=== PATIENT | male | born 1945 | race Caucasian/White ===

== ENCOUNTER 2017-10-15 02:20 | Emergency (ER) | payer OTHER ==
[~2017-10-15] VITALS: Ht 177.8 cm; Wt 81.1 kg
[~2017-10-15 02:20] MED LIST: CLOP75TA52 PO; LISI-167 PO; METF10002 PO; SIMV40TA3 PO
[2017-10-15 02:23] VITALS: BP 156/90
[2017-10-15] MEDS ORDERED: AZITHROMYCIN 500 MG TABLET ONE (03:24)
[2017-10-15] MEDS ORDERED: CEFTRIAXONE 250 MG ONE (03:25)
[2017-10-15] MEDS ORDERED: AZITHROMYCIN 500 MG TABLET PO ONE (03:30)
[2017-10-15] MEDS ORDERED: CEFTRIAXONE 250 MG IM ONE (03:30)
== END 2017-10-15 04:06 | disposition home or self-care (01) ==
LOC: ED 03:27
DX: A56.01 Chlamydial cystitis and urethritis (principal); E11.9 Type 2 diabetes mellitus without complications; F17.200 Nicotine dependence, unspecified, uncomplicated; Z20.2 Contact with and (suspected) exposure to infections with a predominantly sexual mode of transmission
CPT/HCPCS: 87491; 87591; 96372; 99284; J0696

== ENCOUNTER 2018-06-08 16:11 | Emergency (ER) | payer OTHER ==
[~2018-06-08] VITALS: Ht 177.8 cm; Wt 75.6 kg
[2018-06-08] MEDS ORDERED: DIPH,PERTUSS(ACELL),TET VAC/PF 0.5 ML IM-VACC ONE ×2 (16:30→18:56)
[2018-06-08 17:03] LABS: BASOPHILS # (AUTO) 0.04 x10^3/uL (0-0.1); BASOPHILS % (AUTO) 0 % (0-1); EOSINOPHILS # (AUTO) 0.07 x10^3/uL (0-0.4); EOSINOPHILS % (AUTO) 1 % (1-7); LYMPHOCYTES # (AUTO) 1.38 x10^3/uL (1-3.4); LYMPHOCYTES % (AUTO) 13 % (22-44); MD NO; MEAN CORPUSCULAR HEMOGLOBIN 28.7 pg (27.5-34.5); MEAN CORPUSCULAR HGB CONC 33.1 g/dL (33.2-36.2); MEAN CORPUSCULAR VOLUME 86.8 fL (81-97); MEAN PLATELET VOLUME 7.9 fL (7.4-10.4); MONOCYTES # (AUTO) 0.56 x10^3/uL (0.2-0.8); MONOCYTES % (AUTO) 5 % (2-9); NEUTROPHILS # (AUTO) 8.31 x10^3/uL (1.8-6.8); NEUTROPHILS % (AUTO) 80 % (42-75); PLATELET COUNT 351 x10^3/uL (130-400); RED BLOOD COUNT 5.19 x10^6/uL (4.38-5.82); RED CELL DISTRIBUTION WIDTH 13.7 % (9.4-14.8)
[2018-06-08 17:07] LABS: CHLORIDE 108 mmol/L (98-107)
[2018-06-08 17:15] LABS: ALANINE AMINOTRANSFERASE 30 U/L (12-78); ALBUMIN 3.5 g/dL (3.4-5.0); ALKALINE PHOSPHATASE 126 U/L (45-117); ANION GAP 7 mmol/L (5-15); BILIRUBIN,TOTAL 0.3 mg/dL (0.2-1.0); CALCIUM 8.7 mg/dL (8.5-10.1); TOTAL PROTEIN 7.3 g/dL (6.4-8.2)
--- NOTE | 2018-06-08 17:40 | NUR ---
NAX1
--- NOTE | 2018-06-08 17:46 | NUR ---
FROM LOBBY TO ROOM AT THIS TIME
--- NOTE | 2018-06-08 17:51 | NUR ---
Pt changing into gown, EDT to treat wound with bacitracin.
[2018-06-08] MEDS ORDERED: BACITRACIN ZINC OINT 500U/GM, 0.9 GM ONE (17:53)
--- NOTE | 2018-06-08 17:55 | NUR ---
EDT at bedside to treat wound, pt aware of need for urine sample.
--- NOTE | 2018-06-08 18:02 | NUR ---
Dr. Linder at bedside to evaluate pt.
--- NOTE | 2018-06-08 18:09 | NUR ---
EMELID called for pt regarding making a police report.
--- NOTE | 2018-06-08 18:11 | NUR ---
Pt ambulated to bathroom, no assistance required. Urine sample requested.
--- NOTE | 2018-06-08 18:16 | NUR ---
Pt unable to provide urine sample at this time.
--- NOTE | 2018-06-08 18:25 | NUR ---
KANA at bedside to interview pt.
--- NOTE | 2018-06-08 19:00 | NUR ---
Pt medicated per MAR.
[2018-06-08 19:19] VITALS: BP 157/78
--- NOTE | 2018-06-08 19:20 | NUR ---
Pt ambulated out of room prior to receiving d/c paperwork.
--- NOTE | 2018-06-08 19:24 | NUR ---
made aware that pt has left.
== END 2018-06-08 19:27 | disposition left against medical advice (07) ==
LOC: ED 19:21
DX: S50.312A Abrasion of left elbow, initial encounter (principal); E11.9 Type 2 diabetes mellitus without complications; Y08.89XA Assault by other specified means, initial encounter; Y93.89 Activity, other specified; Y92.89 Other specified places as the place of occurrence of the external cause; Y99.8 Other external cause status
CPT/HCPCS: 36415; 80053; 82800; 82962; 85025; 90471; 90715

== ENCOUNTER 2019-01-13 01:21 | Emergency (ER) | payer OTHER ==
[~2019-01-13] VITALS: Ht 180.3 cm; Wt 78.0 kg
[~2019-01-13 01:21] MED LIST changes: +ACET325T14 PO; +ASPI81TA45 PO; +DOCU-131 PO; +HYDR-3237 PO; +INSU100I11 SQ-INSULIN; +LIDO700A20 TD; +ONDA4TAB13 PO; +SENN-177 PO
[2019-01-13] MEDS ORDERED: FLUORESCEIN OPHTHALMIC 1 MG STRIP ONE (01:24)
[2019-01-13] MEDS ORDERED: PROPARACAINE OPHTH 0.5%, 15ML ONE (01:25)
[2019-01-13] MEDS ORDERED: CIPROFLOXACIN 500 MG TABLET PO ONE (02:30)
[2019-01-13] MEDS ORDERED: CIPROFLOXACIN 500 MG TABLET ONE (02:34)
[2019-01-13 02:36] VITALS: BP 135/62
== END 2019-01-13 02:43 | disposition home or self-care (01) ==
LOC: ED 02:10
DX: H10.021 Other mucopurulent conjunctivitis, right eye (principal); F17.200 Nicotine dependence, unspecified, uncomplicated; E11.9 Type 2 diabetes mellitus without complications; I10 Essential (primary) hypertension; E78.5 Hyperlipidemia, unspecified; Z96.649 Presence of unspecified artificial hip joint
CPT/HCPCS: 99283

== ENCOUNTER 2019-01-14 14:19 | Inpatient (IN) ==
[~2019-01-14] VITALS: Ht 177.8 cm; Wt 77.7 kg
--- NOTE | 2019-01-14 14:49 | NUR ---
PT TO ROOM 23 W/ C/O R EYE CRUSTED OVER AFTER PT WAS DX W/ CONJUNCTIVITIS. [place]. PT STATES HE AWOKE THIS AM AND WAS UNABLE TO OPEN EYE. STATES IT HAS BEEN DRAINING X 3 DAYS. PT RESTING ON [employer]. RUPESH. [employer].
--- NOTE | 2019-01-14 16:03 | NUR ---
THIS RN ATTEMPTED PIV X 2 W/O SUCCESS. ANGUS BUCKLEY AT BEDSIDE ATTEMPTING US PIV.
[2019-01-14 16:08] LABS: ANION GAP 6 mmol/L (5-15); CHLORIDE 103 mmol/L (98-107)
--- NOTE | 2019-01-14 16:44 | NUR ---
PT RESTING ON GURNEY. NADN. PALOMO.
[2019-01-14] MEDS ORDERED: OMNIPAQUE 350 MG/ML, 75ML BOTTLE ONE (17:03)
--- NOTE | 2019-01-14 17:23 | NUR ---
OPTHO AT BEDSIDE.
[2019-01-14] MEDS ORDERED: AMPICILLIN/SULBACTAM 3 GM in SODIUM CHLORIDE 0.9% 100 ML IV ONE (18:00)
[2019-01-14] MEDS ORDERED: VANCOMYCIN PER PHARMACY MC PRN ×2 (18:00→19:00)
[2019-01-14 18:01] LABS: BASOPHILS # (AUTO) 0.04 x10^3/uL (0-0.1); BASOPHILS % (AUTO) 1 % (0-1); EOSINOPHILS # (AUTO) 0.15 x10^3/uL (0-0.4); EOSINOPHILS % (AUTO) 2 % (1-7); LYMPHOCYTES # (AUTO) 1.88 x10^3/uL (1-3.4); LYMPHOCYTES % (AUTO) 21 % (22-44); MD NO; MEAN CORPUSCULAR HEMOGLOBIN 29.7 pg (27.5-34.5); MEAN CORPUSCULAR HGB CONC 33.2 g/dL (33.2-36.2); MEAN CORPUSCULAR VOLUME 89.5 fL (81-97); MEAN PLATELET VOLUME 8.1 fL (7.4-10.4); MONOCYTES % (AUTO) 8 % (2-9); NEUTROPHILS # (AUTO) 6.05 x10^3/uL (1.8-6.8); NEUTROPHILS % (AUTO) 69 % (42-75); PLATELET COUNT 244 x10^3/uL (130-400); RED BLOOD COUNT 5.26 x10^6/uL (4.38-5.82); RED CELL DISTRIBUTION WIDTH 14.6 % (9.4-14.8)
--- NOTE | 2019-01-14 18:19 | NUR ---
PT RESTING ON GURNEY. NADN. PALOMO.
[2019-01-14] MEDS ORDERED: VANCOMYCIN 1,500 MG in SODIUM CHLORIDE 0.9% 250 ML IV ONE (18:30)
--- NOTE | 2019-01-14 18:55 | NUR ---
REPORT GIVEN TO ANGUS ARTIS.
--- NOTE | 2019-01-14 18:56 | NUR ---
PT REPORT FROM ANGUS BANKS. PT CARE TO BE ASSUMED.
[2019-01-14] MEDS ORDERED: ACETAMINOPHEN 325 MG TABLET PO PRN (19:00)
[2019-01-14] MEDS ORDERED: ONDANSETRON 2MG/ML, 2ML IVPush PRN (19:00)
[2019-01-14] MEDS ORDERED: morphine SULFATE 10 MG/ML, 1ML IVPush PRN (19:00)
[2019-01-14] MEDS ORDERED: HYDROcodone/APAP 5/325 TABLET PO PRN (19:00)
--- NOTE | 2019-01-14 19:13 | NUR ---
REPORT GIVEN TO JHOAN URRUTIA RN. ALL QUESTIONS ANSWERED. AWAITING PT TRANSPORT.
[2019-01-14] MEDS ORDERED: LIDODERM 5% PATCH TD PRN (19:30)
[2019-01-14 19:58] VITALS: BP 167/69
[2019-01-14] MEDS ORDERED: PHARMACOKINETIC CONSULTATION MC ONE (20:00)
[2019-01-14] MEDS ORDERED: PHARMACOKINETIC MONITORING MC PRN (20:00)
[2019-01-14 20:17] VITALS: BP 131/68
[2019-01-14] MEDS ORDERED: NEO/POLYMYX B/DEXA OPHTH OINT, 3.5GM RIGHTEYE SCH (21:00)
[2019-01-14] MEDS: VANCOMYCIN 1,600 MG in SODIUM CHLORIDE 0.9% 250 ML IV SCH (22:42)
[2019-01-14] MEDS: SIMVASTATIN 40 MG TABLET PO SCH (22:43)
[2019-01-14] MEDS: INSULIN LISPRO 100 UNITS/ML, PEN SQ-INSULIN SCH (22:43)
[2019-01-14] MEDS ORDERED: NICOTINE 21 MG/24 HR PATCH.TD24 TD ONE (23:00)
[2019-01-15] MEDS: NEO/POLYMYX B/DEXA OPHTH OINT, 3.5GM RIGHTEYE SCH ×5 (00:05→21:14)
[2019-01-15 01:49] VITALS: BP 113/54
[2019-01-15] MEDS: AMPICILLIN/SULBACTAM 3 GM in SODIUM CHLORIDE 0.9% 100 ML IV SCH ×3 (04:14→18:05)
[2019-01-15 05:36] LABS: BASOPHILS # (AUTO) 0.04 x10^3/uL (0-0.1); BASOPHILS % (AUTO) 1 % (0-1); EOSINOPHILS # (AUTO) 0.14 x10^3/uL (0-0.4); EOSINOPHILS % (AUTO) 2 % (1-7); LYMPHOCYTES # (AUTO) 1.86 x10^3/uL (1-3.4); LYMPHOCYTES % (AUTO) 20 % (22-44); MD NO; MEAN CORPUSCULAR HEMOGLOBIN 29.7 pg (27.5-34.5); MEAN CORPUSCULAR VOLUME 89.8 fL (81-97); MEAN PLATELET VOLUME 8.5 fL (7.4-10.4); MONOCYTES % (AUTO) 8 % (2-9); NEUTROPHILS # (AUTO) 6.44 x10^3/uL (1.8-6.8); NEUTROPHILS % (AUTO) 70 % (42-75); PLATELET COUNT 247 x10^3/uL (130-400); RED BLOOD COUNT 4.92 x10^6/uL (4.38-5.82); RED CELL DISTRIBUTION WIDTH 14.8 % (9.4-14.8)
[2019-01-15 05:43] LABS: ANION GAP 5 mmol/L (5-15); CALCIUM 8.7 mg/dL (8.5-10.1); CHLORIDE 110 mmol/L (98-107)
[2019-01-15 05:44] LABS: CREATININE 0.79 mg/dL (0.7-1.3)
[2019-01-15 06:31] LABS: HCT (SEDRATE) 44.2 % (39.2-51.8)
[2019-01-15 06:43] VITALS: BP 129/66
[2019-01-15] MEDS: LIDODERM REMOVE PATCH NOTE XX SCH (08:00)
[2019-01-15] MEDS: INSULIN LISPRO 100 UNITS/ML, PEN SQ-INSULIN SCH ×4 (08:04→21:13)
[2019-01-15 08:35] LABS: AMPHETAMINE SCREEN, URINE Positive (Negative); BARBITURATE SCREEN, URINE Negative (Negative); BENZODIAZEPINE SCREEN, URINE Negative (Negative); CANNABINOID SCREEN, URINE Negative (Negative); COCAINE SCREEN, URINE Negative (Negative); METHADONE SCREEN, URINE Negative (Negative); OPIATE SCREEN, URINE Positive (Negative)
[2019-01-15 09:46] VITALS: BP 123/64
[2019-01-15] MEDS: CLOPIDOGREL 75 MG TABLET PO SCH (09:47)
[2019-01-15] MEDS: LISINOPRIL 10 MG TABLET PO SCH (09:47)
[2019-01-15 13:53] VITALS: BP 129/65
[2019-01-15 18:37] VITALS: BP 114/70
[2019-01-15] MEDS: SIMVASTATIN 40 MG TABLET PO SCH (21:14)
[2019-01-15] MEDS: VANCOMYCIN 1,600 MG in SODIUM CHLORIDE 0.9% 250 ML IV SCH (21:14)
[2019-01-16] MEDS: AMPICILLIN/SULBACTAM 3 GM in SODIUM CHLORIDE 0.9% 100 ML IV SCH ×4 (00:46→17:58)
[2019-01-16 02:22] VITALS: BP 123/66
[2019-01-16 05:23] LABS: BASOPHILS # (AUTO) 0.05 x10^3/uL (0-0.1); BASOPHILS % (AUTO) 1 % (0-1); EOSINOPHILS # (AUTO) 0.13 x10^3/uL (0-0.4); EOSINOPHILS % (AUTO) 2 % (1-7); LYMPHOCYTES # (AUTO) 2.13 x10^3/uL (1-3.4); LYMPHOCYTES % (AUTO) 27 % (22-44); MD NO; MEAN CORPUSCULAR HEMOGLOBIN 29.2 pg (27.5-34.5); MEAN CORPUSCULAR HGB CONC 32.7 g/dL (33.2-36.2); MEAN CORPUSCULAR VOLUME 89.3 fL (81-97); MEAN PLATELET VOLUME 8.2 fL (7.4-10.4); MONOCYTES # (AUTO) 0.67 x10^3/uL (0.2-0.8); MONOCYTES % (AUTO) 8 % (2-9); NEUTROPHILS % (AUTO) 63 % (42-75); PLATELET COUNT 251 x10^3/uL (130-400); RED BLOOD COUNT 5.02 x10^6/uL (4.38-5.82); RED CELL DISTRIBUTION WIDTH 14.7 % (9.4-14.8)
[2019-01-16 05:29] LABS: ANION GAP 5 mmol/L (5-15); CALCIUM 8.6 mg/dL (8.5-10.1); CHLORIDE 110 mmol/L (98-107)
[2019-01-16 05:31] LABS: CREATININE 0.71 mg/dL (0.7-1.3)
[2019-01-16] MEDS: NEO/POLYMYX B/DEXA OPHTH OINT, 3.5GM RIGHTEYE SCH ×4 (05:45→20:18)
[2019-01-16 06:57] VITALS: BP 111/58
[2019-01-16] MEDS: INSULIN LISPRO 100 UNITS/ML, PEN SQ-INSULIN SCH ×4 (07:00→21:00)
[2019-01-16] MEDS: LIDODERM REMOVE PATCH NOTE XX SCH (08:00)
[2019-01-16] MEDS: LISINOPRIL 10 MG TABLET PO SCH (08:06)
[2019-01-16] MEDS: CLOPIDOGREL 75 MG TABLET PO SCH (08:06)
[2019-01-16] MEDS ORDERED: OMNIPAQUE 350 MG/ML, 75ML BOTTLE ONE (13:00)
[2019-01-16 13:34] VITALS: BP 117/72
[2019-01-16 18:46] VITALS: BP 119/65
[2019-01-16] MEDS ORDERED: AZITHROMYCIN 500 MG TABLET PO ONE (19:00)
[2019-01-16] MEDS: CEFTRIAXONE PMX 2GM/50ML 50 ML IV SCH (20:18)
[2019-01-16] MEDS: SIMVASTATIN 40 MG TABLET PO SCH (20:19)
[2019-01-16] MEDS: MOXIFLOXACIN OPHTH O.5%, 3ML RIGHTEYE SCH (21:00)
[2019-01-16] MEDS ORDERED: MOXIFLOXACIN OPHTH O.5%, 3ML RIGHTEYE SCH (21:00)
[2019-01-17 01:29] VITALS: BP 119/66
[2019-01-17] MEDS: MOXIFLOXACIN OPHTH O.5%, 3ML RIGHTEYE SCH ×4 (06:00→20:45)
[2019-01-17] MEDS: NEO/POLYMYX B/DEXA OPHTH OINT, 3.5GM RIGHTEYE SCH ×4 (06:26→20:53)
[2019-01-17 06:28] VITALS: BP 125/72
[2019-01-17] MEDS: INSULIN LISPRO 100 UNITS/ML, PEN SQ-INSULIN SCH ×4 (07:00→20:56)
[2019-01-17] MEDS: LIDODERM REMOVE PATCH NOTE XX SCH (08:00)
[2019-01-17] MEDS: LISINOPRIL 10 MG TABLET PO SCH (10:24)
[2019-01-17] MEDS: CLOPIDOGREL 75 MG TABLET PO SCH (10:24)
[2019-01-17 13:34] VITALS: BP 129/75
[2019-01-17 19:55] VITALS: BP 123/73
[2019-01-17] MEDS: CEFTRIAXONE PMX 2GM/50ML 50 ML IV SCH (20:44)
[2019-01-17] MEDS: SIMVASTATIN 40 MG TABLET PO SCH (20:53)
[2019-01-17 23:24] VITALS: BP 119/66
[2019-01-18] MEDS: MOXIFLOXACIN OPHTH O.5%, 3ML RIGHTEYE SCH ×4 (06:12→21:20)
[2019-01-18] MEDS: NEO/POLYMYX B/DEXA OPHTH OINT, 3.5GM RIGHTEYE SCH ×4 (06:20→21:20)
[2019-01-18] MEDS: INSULIN LISPRO 100 UNITS/ML, PEN SQ-INSULIN SCH ×4 (07:00→21:21)
[2019-01-18 07:07] VITALS: BP 115/66
[2019-01-18] MEDS: LIDODERM REMOVE PATCH NOTE XX SCH (08:00)
[2019-01-18] MEDS: LISINOPRIL 10 MG TABLET PO SCH (09:09)
[2019-01-18] MEDS: CLOPIDOGREL 75 MG TABLET PO SCH (09:09)
[2019-01-18 14:13] VITALS: BP 122/70
[2019-01-18 16:04] VITALS: BP 133/94
[2019-01-18 19:43] VITALS: BP 114/75
[2019-01-18] MEDS: CEFTRIAXONE PMX 2GM/50ML 50 ML IV SCH (21:20)
[2019-01-18] MEDS: SIMVASTATIN 40 MG TABLET PO SCH (21:20)
[2019-01-19 03:22] VITALS: BP 98/58
[2019-01-19] MEDS: MOXIFLOXACIN OPHTH O.5%, 3ML RIGHTEYE SCH ×4 (06:11→20:51)
[2019-01-19] MEDS: NEO/POLYMYX B/DEXA OPHTH OINT, 3.5GM RIGHTEYE SCH ×4 (06:11→20:51)
[2019-01-19 07:10] VITALS: BP 137/71
[2019-01-19] MEDS: LISINOPRIL 10 MG TABLET PO SCH (07:48)
[2019-01-19] MEDS: INSULIN LISPRO 100 UNITS/ML, PEN SQ-INSULIN SCH ×4 (07:48→20:50)
[2019-01-19] MEDS: CLOPIDOGREL 75 MG TABLET PO SCH (07:48)
[2019-01-19] MEDS: LIDODERM REMOVE PATCH NOTE XX SCH (07:48)
[2019-01-19 14:27] VITALS: BP 96/55
[2019-01-19 20:16] VITALS: BP 110/62
[2019-01-19] MEDS: CEFTRIAXONE PMX 2GM/50ML 50 ML IV SCH (20:49)
[2019-01-19] MEDS: SIMVASTATIN 40 MG TABLET PO SCH (20:49)
[2019-01-20 02:00] VITALS: BP 119/69
[2019-01-20] MEDS: MOXIFLOXACIN OPHTH O.5%, 3ML RIGHTEYE SCH ×4 (05:42→21:09)
[2019-01-20] MEDS: NEO/POLYMYX B/DEXA OPHTH OINT, 3.5GM RIGHTEYE SCH ×4 (05:42→21:09)
[2019-01-20] MEDS: INSULIN LISPRO 100 UNITS/ML, PEN SQ-INSULIN SCH ×4 (07:00→21:10)
[2019-01-20] MEDS: LIDODERM REMOVE PATCH NOTE XX SCH (08:00)
[2019-01-20] MEDS: LISINOPRIL 10 MG TABLET PO SCH (08:50)
[2019-01-20] MEDS: CLOPIDOGREL 75 MG TABLET PO SCH (08:50)
[2019-01-20 08:51] VITALS: BP 105/64
[2019-01-20 17:04] VITALS: BP 113/64
[2019-01-20 19:23] VITALS: BP 121/66
[2019-01-20] MEDS: CEFTRIAXONE PMX 2GM/50ML 50 ML IV SCH (21:09)
[2019-01-20] MEDS: SIMVASTATIN 40 MG TABLET PO SCH (21:09)
[2019-01-21 01:00] VITALS: BP 139/87
[2019-01-21] MEDS: NEO/POLYMYX B/DEXA OPHTH OINT, 3.5GM RIGHTEYE SCH ×4 (06:38→21:45)
[2019-01-21] MEDS: MOXIFLOXACIN OPHTH O.5%, 3ML RIGHTEYE SCH ×4 (06:38→21:45)
[2019-01-21 06:39] VITALS: BP 109/62
[2019-01-21] MEDS: LIDODERM REMOVE PATCH NOTE XX SCH (08:00)
[2019-01-21] MEDS: CLOPIDOGREL 75 MG TABLET PO SCH (08:32)
[2019-01-21] MEDS: LISINOPRIL 10 MG TABLET PO SCH (08:32)
[2019-01-21] MEDS: INSULIN LISPRO 100 UNITS/ML, PEN SQ-INSULIN SCH ×4 (08:33→21:44)
[2019-01-21 14:41] VITALS: BP 115/65
[2019-01-21 21:11] VITALS: BP 100/56
[2019-01-21] MEDS: SIMVASTATIN 40 MG TABLET PO SCH (21:43)
[2019-01-21] MEDS: CEFTRIAXONE PMX 2GM/50ML 50 ML IV SCH (21:43)
[2019-01-22 01:23] VITALS: BP 110/51
[2019-01-22] MEDS: NEO/POLYMYX B/DEXA OPHTH OINT, 3.5GM RIGHTEYE SCH ×4 (06:42→21:14)
[2019-01-22] MEDS: MOXIFLOXACIN OPHTH O.5%, 3ML RIGHTEYE SCH ×4 (06:43→21:14)
[2019-01-22] MEDS: LIDODERM REMOVE PATCH NOTE XX SCH (08:00)
[2019-01-22] MEDS: INSULIN LISPRO 100 UNITS/ML, PEN SQ-INSULIN SCH ×4 (08:31→21:00)
[2019-01-22] MEDS: CLOPIDOGREL 75 MG TABLET PO SCH (08:31)
[2019-01-22] MEDS: LISINOPRIL 10 MG TABLET PO SCH (08:32)
[2019-01-22 08:50] VITALS: BP 113/60
[2019-01-22 13:58] VITALS: BP 114/64
[2019-01-22 19:22] VITALS: BP 105/59
[2019-01-22] MEDS: CEFTRIAXONE PMX 2GM/50ML 50 ML IV SCH (21:13)
[2019-01-22] MEDS: SIMVASTATIN 40 MG TABLET PO SCH (21:14)
[2019-01-23 01:26] VITALS: BP 122/64
[2019-01-23] MEDS: NEO/POLYMYX B/DEXA OPHTH OINT, 3.5GM RIGHTEYE SCH ×4 (05:24→20:41)
[2019-01-23] MEDS: MOXIFLOXACIN OPHTH O.5%, 3ML RIGHTEYE SCH ×4 (05:24→20:41)
[2019-01-23 06:36] VITALS: BP 97/61
[2019-01-23] MEDS: INSULIN LISPRO 100 UNITS/ML, PEN SQ-INSULIN SCH ×4 (07:00→20:42)
[2019-01-23] MEDS: CLOPIDOGREL 75 MG TABLET PO SCH (07:41)
[2019-01-23] MEDS: LISINOPRIL 10 MG TABLET PO SCH (07:42)
[2019-01-23] MEDS: LIDODERM REMOVE PATCH NOTE XX SCH (07:42)
[2019-01-23 11:12] LABS: BASOPHILS # (AUTO) 0.06 x10^3/uL (0-0.1); BASOPHILS % (AUTO) 1 % (0-1); EOSINOPHILS # (AUTO) 0.14 x10^3/uL (0-0.4); EOSINOPHILS % (AUTO) 2 % (1-7); LYMPHOCYTES # (AUTO) 2.54 x10^3/uL (1-3.4); LYMPHOCYTES % (AUTO) 27 % (22-44); MD NO; MEAN CORPUSCULAR HEMOGLOBIN 29.9 pg (27.5-34.5); MEAN CORPUSCULAR HGB CONC 33.4 g/dL (33.2-36.2); MEAN CORPUSCULAR VOLUME 89.5 fL (81-97); MEAN PLATELET VOLUME 8.1 fL (7.4-10.4); MONOCYTES # (AUTO) 0.57 x10^3/uL (0.2-0.8); MONOCYTES % (AUTO) 6 % (2-9); NEUTROPHILS # (AUTO) 6.23 x10^3/uL (1.8-6.8); NEUTROPHILS % (AUTO) 65 % (42-75); PLATELET COUNT 310 x10^3/uL (130-400); RED BLOOD COUNT 5.31 x10^6/uL (4.38-5.82)
[2019-01-23 11:22] LABS: ALANINE AMINOTRANSFERASE 40 U/L (12-78); ALBUMIN 3.3 g/dL (3.4-5.0); ANION GAP 7 mmol/L (5-15); C-REACTIVE PROTEIN, QUANT 0.07 mg/dL (0.02-0.49); CALCIUM 8.9 mg/dL (8.5-10.1); CHLORIDE 106 mmol/L (98-107); CREATININE 0.77 mg/dL (0.7-1.3)
[2019-01-23 11:24] LABS: ALKALINE PHOSPHATASE 120 U/L (45-117); BILIRUBIN,TOTAL 0.3 mg/dL (0.2-1.0)
[2019-01-23 12:19] VITALS: BP 108/67
[2019-01-23 14:10] LABS: HCT (SEDRATE) 47.5 % (39.2-51.8)
[2019-01-23 20:38] VITALS: BP 108/57
[2019-01-23] MEDS: CEFTRIAXONE PMX 2GM/50ML 50 ML IV SCH (20:40)
[2019-01-23] MEDS: SIMVASTATIN 40 MG TABLET PO SCH (20:41)
[2019-01-24 04:25] VITALS: BP 126/70
[2019-01-24 05:22] LABS: ALANINE AMINOTRANSFERASE 46 U/L (12-78); ALBUMIN 3.3 g/dL (3.4-5.0); ANION GAP 6 mmol/L (5-15); CALCIUM 8.7 mg/dL (8.5-10.1); CHLORIDE 109 mmol/L (98-107); CREATININE 0.75 mg/dL (0.7-1.3)
[2019-01-24 05:24] LABS: ALKALINE PHOSPHATASE 108 U/L (45-117); BILIRUBIN,TOTAL 0.3 mg/dL (0.2-1.0)
[2019-01-24 05:32] LABS: BASOPHILS # (AUTO) 0.06 x10^3/uL (0-0.1); BASOPHILS % (AUTO) 1 % (0-1); EOSINOPHILS # (AUTO) 0.15 x10^3/uL (0-0.4); EOSINOPHILS % (AUTO) 2 % (1-7); LYMPHOCYTES # (AUTO) 3.07 x10^3/uL (1-3.4); LYMPHOCYTES % (AUTO) 31 % (22-44); MD NO; MEAN CORPUSCULAR HEMOGLOBIN 29.4 pg (27.5-34.5); MEAN CORPUSCULAR HGB CONC 33.6 g/dL (33.2-36.2); MEAN CORPUSCULAR VOLUME 87.7 fL (81-97); MEAN PLATELET VOLUME 7.9 fL (7.4-10.4); MONOCYTES # (AUTO) 0.59 x10^3/uL (0.2-0.8); MONOCYTES % (AUTO) 6 % (2-9); NEUTROPHILS # (AUTO) 6.15 x10^3/uL (1.8-6.8); NEUTROPHILS % (AUTO) 61 % (42-75); PLATELET COUNT 315 x10^3/uL (130-400); RED BLOOD COUNT 5.35 x10^6/uL (4.38-5.82); RED CELL DISTRIBUTION WIDTH 14.5 % (9.4-14.8)
[2019-01-24] MEDS: NEO/POLYMYX B/DEXA OPHTH OINT, 3.5GM RIGHTEYE SCH ×2 (05:38→11:21)
[2019-01-24] MEDS: MOXIFLOXACIN OPHTH O.5%, 3ML RIGHTEYE SCH ×2 (05:38→11:21)
[2019-01-24] MEDS: INSULIN LISPRO 100 UNITS/ML, PEN SQ-INSULIN SCH ×2 (07:00→11:21)
[2019-01-24] MEDS: LIDODERM REMOVE PATCH NOTE XX SCH (07:04)
[2019-01-24] MEDS: CLOPIDOGREL 75 MG TABLET PO SCH (07:26)
[2019-01-24] MEDS: LISINOPRIL 10 MG TABLET PO SCH (07:26)
[2019-01-24 08:09] VITALS: BP 113/73
[2019-01-24 13:30] VITALS: BP 113/67
== END 2019-01-24 16:20 | disposition left against medical advice (07) | DRG 121 ==
LOC: ED 15:21 → EDIP 18:00 → 3N 19:00 → 4NE 19:58 → 3N 01-17 09:10
PROVIDERS: ADMIT Internal Medicine; ATTEND Internal Medicine
DX: H05.011 Cellulitis of right orbit (principal); L02.01 Cutaneous abscess of face; L03.213 Periorbital cellulitis; A54.31 Gonococcal conjunctivitis; E78.5 Hyperlipidemia, unspecified; F15.10 Other stimulant abuse, uncomplicated; I10 Essential (primary) hypertension; F17.210 Nicotine dependence, cigarettes, uncomplicated; I25.10 Atherosclerotic heart disease of native coronary artery without angina pectoris; K75.9 Inflammatory liver disease, unspecified; Z96.641 Presence of right artificial hip joint; Z79.02 Long term (current) use of antithrombotics/antiplatelets; Z79.82 Long term (current) use of aspirin; Z79.84 Long term (current) use of oral hypoglycemic drugs; Z79.899 Other long term (current) drug therapy; Z80.1 Family history of malignant neoplasm of trachea, bronchus and lung; Z80.3 Family history of malignant neoplasm of breast; Z82.5 Family history of asthma and other chronic lower respiratory diseases; Z95.5 Presence of coronary angioplasty implant and graft; E11.9 Type 2 diabetes mellitus without complications
CPT/HCPCS: 36415; 70481; 80048; 80053; 80074; 80307; 82962; 83735; 84100; 85025; 85651; 86140; 86592; 87040; 87070; 87081; 87186; 87205; 87389; 87491; 87591; 96374; 99283; G0378; J0295; J0696; J3370; Q9967; J1815; J7050

== ENCOUNTER 2019-09-23 12:05 | Inpatient (IN) | payer OTHER ==
[~2019-09-23] VITALS: Ht 177.8 cm; Wt 76.0 kg
[~2019-09-23 12:05] MED LIST changes: +SIMV40TA20 PO; -SIMV40TA3 PO
--- NOTE | 2019-09-23 12:23 | NUR ---
BREAK RN: 74 YR OLD MALE HERE WITH C/O HERNIA PAIN FOR APPROX 4 MONTHS, DIFFICULTY URINATING. HERNIA IN LEFT GROIN DOWN TO TESTICLE. CINDY CHRISTIANSEN AT BEDSIDE TO BHAVIN MADRID.
[2019-09-23] MEDS ORDERED: ONDANSETRON 2MG/ML, 2ML IVPush ONE (12:30)
[2019-09-23] MEDS ORDERED: SODIUM CHLORIDE FLUSH 10ML SYR IVF ONE (12:30)
[2019-09-23] MEDS ORDERED: MORPHINE SULFATE 4 MG/ML, 1ML IVPush PRN (12:30)
[2019-09-23 12:53] LABS: BASOPHILS # (AUTO) 0.03 x10^3/uL (0-0.1); BASOPHILS % (AUTO) 0 % (0-1); EOSINOPHILS # (AUTO) 0.07 x10^3/uL (0-0.4); EOSINOPHILS % (AUTO) 1 % (1-7); LYMPHOCYTES # (AUTO) 1.97 x10^3/uL (1-3.4); LYMPHOCYTES % (AUTO) 28 % (22-44); MD NO; MEAN CORPUSCULAR HGB CONC 32.5 g/dL (33.2-36.2); MEAN CORPUSCULAR VOLUME 89.4 fL (81-97); MEAN PLATELET VOLUME 7.6 fL (7.4-10.4); MONOCYTES # (AUTO) 0.47 x10^3/uL (0.2-0.8); MONOCYTES % (AUTO) 7 % (2-9); NEUTROPHILS # (AUTO) 4.58 x10^3/uL (1.8-6.8); NEUTROPHILS % (AUTO) 65 % (42-75); PLATELET COUNT 286 x10^3/uL (130-400); RED CELL DISTRIBUTION WIDTH 13.6 % (9.4-14.8)
--- NOTE | 2019-09-23 12:54 | NUR ---
REPORT TO KARIE GRECO.
[2019-09-23] MEDS ORDERED: PLEASE ENTER HEIGHT MC SCH (13:00)
[2019-09-23 13:05] LABS: ALBUMIN 3.3 g/dL (3.4-5.0); ANION GAP 7 mmol/L (5-15); CHLORIDE 105 mmol/L (98-107)
[2019-09-23 13:09] LABS: ALANINE AMINOTRANSFERASE 28 U/L (12-78); ALKALINE PHOSPHATASE 157 U/L (45-117); BILIRUBIN,TOTAL 0.4 mg/dL (0.2-1.0); CREATININE 0.89 mg/dL (0.7-1.3)
[2019-09-23 13:29] LABS: INTERNATIONAL NORMALIZED RATIO 0.94 (0.93-1.1)
[2019-09-23] MEDS ORDERED: ONDANSETRON 2MG/ML, 2ML ONE (13:37)
[2019-09-23] MEDS ORDERED: MORPHINE SULFATE 4 MG/ML, 1ML ONE (13:37)
[2019-09-23] MEDS ORDERED: OMNIPAQUE 350 MG/ML, 100ML BOTTLE ONE (14:00)
[2019-09-23] MEDS ORDERED: ONDANSETRON 2MG/ML, 2ML IVPush PRN (15:30)
[2019-09-23] MEDS ORDERED: LABETALOL 5MG/ML, 20ML IVPush PRN (15:30)
[2019-09-23] MEDS ORDERED: ENALAPRILAT 1.25 MG/ML, 2ML IVPush PRN (15:30)
[2019-09-23] MEDS ORDERED: morphine SULFATE 10 MG/ML, 1ML IVPush PRN (15:30)
[2019-09-23 15:39] VITALS: BP 122/68
[2019-09-23] MEDS ORDERED: DEXTROSE 4 GM TAB.CHEW PO PRN (16:00)
[2019-09-23] MEDS ORDERED: GLUCAGON 1 MG IM PRN (16:00)
[2019-09-23] MEDS ORDERED: DEXTROSE 50%, 50ML SYRINGE IVPush PRN (16:00)
[2019-09-23] MEDS: ENOXAPARIN 40 MG/0.4 ML SQ SCH (16:31)
[2019-09-23] MEDS: D5%-0.45NACL+KCL 20MEQ 1,000 ML IV SCH (16:31)
[2019-09-23] MEDS: NICOTINE 14MG/24 HR PATCH.TD24 TD SCH (16:31)
[2019-09-23] MEDS: INSULIN LISPRO 100 UNITS/ML, PEN SQ-INSULIN SCH ×2 (17:25→21:08)
[2019-09-23 19:39] VITALS: BP 119/68
[2019-09-23] MEDS: SODIUM CHLORIDE FLUSH 10ML SYR IVF SCH (21:00)
[2019-09-24 00:53] VITALS: BP 136/71
[2019-09-24] MEDS: D5%-0.45NACL+KCL 20MEQ 1,000 ML IV SCH (03:01)
[2019-09-24 04:34] LABS: BASOPHILS # (AUTO) 0.05 x10^3/uL (0-0.1); BASOPHILS % (AUTO) 1 % (0-1); EOSINOPHILS # (AUTO) 0.08 x10^3/uL (0-0.4); EOSINOPHILS % (AUTO) 1 % (1-7); LYMPHOCYTES # (AUTO) 2.06 x10^3/uL (1-3.4); LYMPHOCYTES % (AUTO) 29 % (22-44); MD NO; MEAN CORPUSCULAR HGB CONC 32.6 g/dL (33.2-36.2); MEAN CORPUSCULAR VOLUME 88.9 fL (81-97); MEAN PLATELET VOLUME 7.4 fL (7.4-10.4); MONOCYTES # (AUTO) 0.48 x10^3/uL (0.2-0.8); MONOCYTES % (AUTO) 7 % (2-9); NEUTROPHILS # (AUTO) 4.56 x10^3/uL (1.8-6.8); NEUTROPHILS % (AUTO) 63 % (42-75); PLATELET COUNT 258 x10^3/uL (130-400); RED BLOOD COUNT 5.49 x10^6/uL (4.38-5.82); RED CELL DISTRIBUTION WIDTH 13.6 % (9.4-14.8)
[2019-09-24 04:43] LABS: CHLORIDE 106 mmol/L (98-107)
[2019-09-24 04:50] LABS: ALANINE AMINOTRANSFERASE 30 U/L (12-78); ALBUMIN 2.8 g/dL (3.4-5.0); ALKALINE PHOSPHATASE 121 U/L (45-117); ANION GAP 7 mmol/L (5-15); BILIRUBIN,TOTAL 0.4 mg/dL (0.2-1.0); CALCIUM 8.3 mg/dL (8.5-10.1); CREATININE 0.68 mg/dL (0.7-1.3); TOTAL PROTEIN 6.5 g/dL (6.4-8.2)
[2019-09-24] MEDS: INSULIN LISPRO 100 UNITS/ML, PEN SQ-INSULIN SCH ×4 (07:28→20:18)
[2019-09-24] MEDS: SODIUM CHLORIDE FLUSH 10ML SYR IVF SCH ×2 (07:29→21:00)
[2019-09-24 07:31] VITALS: BP 108/69
[2019-09-24 08:06] LABS: MICROSCOPIC NOT IND
[2019-09-24] MEDS ORDERED: BUPIVACAINE/EPI 0.5% 1:200K ONE (09:49)
[2019-09-24] MEDS ORDERED: FENTANYL PF 250 MCG/5ML ONE (09:50)
[2019-09-24] MEDS ORDERED: BUPIVACAINE/EPI 0.5% 1:200K IM ONE (10:31)
[2019-09-24] MEDS ORDERED: DEXAMETHASONE 4 MG/ML, 1ML ONE (11:28)
[2019-09-24] MEDS ORDERED: GLYCOPYRROLATE 0.2MG/1ML, 5ML ONE (11:28)
[2019-09-24] MEDS ORDERED: ONDANSETRON 2MG/ML, 2ML ONE (11:28)
[2019-09-24] MEDS ORDERED: CEFAZOLIN 1,000 MG ONE (11:28)
[2019-09-24] MEDS ORDERED: PROPOFOL 10 MG/ML, 20ML ONE (11:28)
[2019-09-24] MEDS ORDERED: SUCCINYLCHOLINE 20 MG/ML, 10ML ONE (11:28)
[2019-09-24] MEDS ORDERED: ROCURONIUM 10MG/ML,5ML ONE (11:28)
[2019-09-24] MEDS ORDERED: NEOSTIGMINE 1 MG/ML, 10ML ONE (11:28)
[2019-09-24] MEDS ORDERED: ACETAMINOPHEN 325 MG TABLET PO PRN (11:30)
[2019-09-24] MEDS ORDERED: KETOROLAC 30 MG/1 ML IV PRN (11:30)
[2019-09-24] MEDS ORDERED: LABETALOL 5MG/ML, 20ML IV PRN (11:30)
[2019-09-24] MEDS ORDERED: MEPERIDINE/PF 25MG/0.5ML IVPush PRN (11:30)
[2019-09-24] MEDS ORDERED: OXYcodone 5 MG/5 ML ORAL.SOL UDC PO PRN (11:30)
[2019-09-24] MEDS ORDERED: PROMETHAZINE 25 MG/ML, 1ML IV PRN (11:30)
[2019-09-24] MEDS ORDERED: ALBUTEROL SULFATE 2.5 MG/3 ML NPPB PRN (11:30)
[2019-09-24] MEDS ORDERED: DIAZEPAM 5 MG/ML, 2ML IVPush PRN (11:30)
[2019-09-24] MEDS ORDERED: hydrALAzine 20 MG/ML, 1ML IV PRN (11:30)
[2019-09-24] MEDS ORDERED: FENTANYL PF 100 MCG/2ML ONE (11:47)
[2019-09-24] MEDS ORDERED: OXYcodone 5 MG/5 ML ORAL.SOL UDC ONE (11:47)
[2019-09-24] MEDS ORDERED: ACETAMINOPHEN 650 MG/20.3 ML UDC ONE (11:50)
[2019-09-24] MEDS: FENTANYL PF 100 MCG/2ML IV PRN ×2 (11:51→11:56)
[2019-09-24] MEDS ORDERED: HYDROmorphone 1 MG/ML, 1ML INJ ONE (11:58)
[2019-09-24] MEDS: HYDROmorphone 2 MG/ML, 1ML IVPush PRN ×2 (12:01→12:06)
[2019-09-24 13:00] VITALS: BP 119/68
[2019-09-24] MEDS: NICOTINE 14MG/24 HR PATCH.TD24 TD SCH (15:30)
[2019-09-24] MEDS: ENOXAPARIN 40 MG/0.4 ML SQ SCH (15:30)
[2019-09-24 19:00] VITALS: BP 119/70
[2019-09-25 00:07] VITALS: BP 117/74
[2019-09-25 04:02] VITALS: BP 131/69
[2019-09-25] MEDS: MORPHINE SULFATE 4 MG/ML, 1ML IVPush PRN ×2 (04:12→08:12)
[2019-09-25 07:26] VITALS: BP 128/71
[2019-09-25 07:59] LABS: BASOPHILS # (AUTO) 0.04 x10^3/uL (0-0.1); BASOPHILS % (AUTO) 0 % (0-1); EOSINOPHILS # (AUTO) 0.02 x10^3/uL (0-0.4); EOSINOPHILS % (AUTO) 0 % (1-7); LYMPHOCYTES # (AUTO) 1.83 x10^3/uL (1-3.4); LYMPHOCYTES % (AUTO) 17 % (22-44); MD NO; MEAN CORPUSCULAR HEMOGLOBIN 29.1 pg (27.5-34.5); MEAN CORPUSCULAR HGB CONC 32.8 g/dL (33.2-36.2); MEAN CORPUSCULAR VOLUME 88.6 fL (81-97); MEAN PLATELET VOLUME 7.5 fL (7.4-10.4); MONOCYTES # (AUTO) 0.73 x10^3/uL (0.2-0.8); MONOCYTES % (AUTO) 7 % (2-9); NEUTROPHILS # (AUTO) 7.86 x10^3/uL (1.8-6.8); NEUTROPHILS % (AUTO) 75 % (42-75); PLATELET COUNT 260 x10^3/uL (130-400); RED BLOOD COUNT 5.56 x10^6/uL (4.38-5.82); RED CELL DISTRIBUTION WIDTH 13.8 % (9.4-14.8)
[2019-09-25 08:05] LABS: ANION GAP 6 mmol/L (5-15); CALCIUM 8.9 mg/dL (8.5-10.1); CHLORIDE 105 mmol/L (98-107)
[2019-09-25] MEDS: INSULIN LISPRO 100 UNITS/ML, PEN SQ-INSULIN SCH ×2 (08:11→11:15)
[2019-09-25] MEDS: SODIUM CHLORIDE FLUSH 10ML SYR IVF SCH (08:13)
[2019-09-25] MEDS ORDERED: LISI-167 PO (11:02)
[2019-09-25] MEDS ORDERED: SIMV40TA20 PO (11:02)
[2019-09-25] MEDS ORDERED: METF500T17 PO (11:02)
[2019-09-25] MEDS ORDERED: CLOP75TA52 PO (11:02)
[2019-09-25] MEDS ORDERED: ACET325T14 PO (11:25)
[2019-09-25] MEDS ORDERED: ACETAMINOPHEN 500 MG TABLET PO ONE (11:30)
[2019-09-25 11:31] VITALS: BP 112/64
== END 2019-09-25 12:36 | disposition home or self-care (01) | DRG 351 ==
LOC: ED 14:10 → EDIP 14:12 → 4NE 15:20 → DCLOUNGE 09-25 12:26
PROVIDERS: ADMIT Internal Medicine; ATTEND Internal Medicine
PROC: 0YU60KZ Supplement Left Inguinal Region with Nonautologous Tissue Substitute, Open Approach (ICD-10-PCS; principal; 2019-09-24 13:00)
DX: K40.91 Unilateral inguinal hernia, without obstruction or gangrene, recurrent (principal); H05.011 Cellulitis of right orbit; E11.65 Type 2 diabetes mellitus with hyperglycemia; E78.5 Hyperlipidemia, unspecified; F17.200 Nicotine dependence, unspecified, uncomplicated; I10 Essential (primary) hypertension; Z96.641 Presence of right artificial hip joint; I25.10 Atherosclerotic heart disease of native coronary artery without angina pectoris; D17.9 Benign lipomatous neoplasm, unspecified; Z20.828 Contact with and (suspected) exposure to other viral communicable diseases; Z79.02 Long term (current) use of antithrombotics/antiplatelets; Z79.84 Long term (current) use of oral hypoglycemic drugs; Z91.19 Patient's noncompliance with other medical treatment and regimen; Z95.5 Presence of coronary angioplasty implant and graft
CPT/HCPCS: 36415; 74177; 80048; 80053; 81003; 82962; 83735; 84100; 85025; 85610; 85730; 87635; 88302; 88304; 93005; 96374; 96375; G0378; J0690; J1100; J1170; J1650; J2405; J2704; J2710; J3010; Q9967; C1781; J0330; J1815; J2270; J3480

== ENCOUNTER 2020-04-15 02:49 | Emergency (ER) | payer OTHER ==
[~2020-04-15] VITALS: Ht 175.3 cm; Wt 72.6 kg
[~2020-04-15 02:49] MED LIST changes: +METF500T17 PO
--- NOTE | 2020-04-15 03:05 | NUR ---
PATIENT SAFETY MANAGER: PT FSBS PERFORMED IN TRIAGE
[2020-04-15 03:22] LABS: BASOPHILS % (AUTO) 1 % (0-1); EOSINOPHILS % (AUTO) 1 % (1-7); LYMPHOCYTES % (AUTO) 25 % (22-44); MEAN CORPUSCULAR HEMOGLOBIN 29.8 pg (27.5-34.5); MEAN CORPUSCULAR HGB CONC 34.7 g/dL (33.2-36.2); MEAN PLATELET VOLUME 7.6 fL (7.4-10.4); MONOCYTES % (AUTO) 6 % (2-9); NEUTROPHILS % (AUTO) 67 % (42-75); PLATELET COUNT 284 x10^3/uL (130-400); RED BLOOD COUNT 5.46 x10^6/uL (4.38-5.82); RED CELL DISTRIBUTION WIDTH 13.8 % (9.4-14.8)
[2020-04-15 03:24] LABS: MD NO
[2020-04-15] MEDS ORDERED: SODIUM CHLORIDE 0.9% 1,000ML IVBOLUS ONE (03:30)
[2020-04-15 03:32] LABS: ALANINE AMINOTRANSFERASE 28 U/L (12-78); ALBUMIN 3.9 g/dL (3.4-5.0); ANION GAP 6 mmol/L (5-15); CALCIUM 9.5 mg/dL (8.5-10.1); CHLORIDE 104 mmol/L (98-107); CREATININE 0.97 mg/dL (0.7-1.3)
[2020-04-15 03:34] LABS: ALKALINE PHOSPHATASE 142 U/L (45-117); BILIRUBIN,TOTAL 0.4 mg/dL (0.2-1.0); TOTAL PROTEIN 8.1 g/dL (6.4-8.2)
--- NOTE | 2020-04-15 03:38 | NUR ---
bladder scan showed 305ml. pt refused straight cath that provider ordered and said "he can eleminate on his own and does not want that cath"
[2020-04-15] MEDS ORDERED: CEFTRIAXONE 250 MG IM ONE (04:00)
[2020-04-15] MEDS ORDERED: AZITHROMYCIN 500 MG TABLET PO ONE (04:00)
[2020-04-15] MEDS ORDERED: CEFTRIAXONE 250 MG ONE (04:14)
[2020-04-15] MEDS ORDERED: AZITHROMYCIN 250 MG TABLET ONE (04:15)
[2020-04-15 04:21] LABS: MICROSCOPIC NOT IND
[2020-04-15 05:10] VITALS: BP 141/84
== END 2020-04-15 05:12 | disposition home or self-care (01) ==
LOC: ED 03:53
DX: N40.1 Benign prostatic hyperplasia with lower urinary tract symptoms (principal); R33.8 Other retention of urine; R30.0 Dysuria; F17.210 Nicotine dependence, cigarettes, uncomplicated; I10 Essential (primary) hypertension; E11.9 Type 2 diabetes mellitus without complications; E78.5 Hyperlipidemia, unspecified; Z98.61 Coronary angioplasty status
CPT/HCPCS: 36415; 80053; 81003; 85025; 87491; 87591; 96372; 99283; 99406; J0696; 82962; 99284

== ENCOUNTER 2020-08-09 | Emergency (ER) | payer OTHER ==
[~2020-08-09] VITALS: Ht 177.8 cm; Wt 70.3 kg
[2020-08-09] MEDS ORDERED: LIDOCAINE 1%, 10ML INFIL ONE (00:30)
[2020-08-09 00:43] LABS: BASOPHILS % (AUTO) 1 % (0-1); EOSINOPHILS % (AUTO) 1 % (1-7); LYMPHOCYTES % (AUTO) 20 % (22-44); MEAN CORPUSCULAR HGB CONC 35.4 g/dL (33.2-36.2); MEAN PLATELET VOLUME 7.8 fL (7.4-10.4); MONOCYTES % (AUTO) 9 % (2-9); NEUTROPHILS % (AUTO) 69 % (42-75); PLATELET COUNT 386 x10^3/uL (130-400); RED BLOOD COUNT 5.67 x10^6/uL (4.38-5.82); RED CELL DISTRIBUTION WIDTH 13.4 % (9.4-14.8)
[2020-08-09 00:52] LABS: ALANINE AMINOTRANSFERASE 23 U/L (12-78); ALBUMIN 3.2 g/dL (3.4-5.0); ANION GAP 12 mmol/L (5-15); CALCIUM 9.4 mg/dL (8.5-10.1); CHLORIDE 100 mmol/L (98-107); CREATININE 1.12 mg/dL (0.7-1.3)
[2020-08-09] MEDS ORDERED: LIDOCAINE-MPF 1%, 5ML ONE (00:52)
[2020-08-09 00:53] LABS: PH, VENOUS 7.502 pH (7.320-7.420)
[2020-08-09 00:54] LABS: FIO2 ROOM AIR %
[2020-08-09 00:54] LABS: ALKALINE PHOSPHATASE 138 U/L (45-117); BILIRUBIN,TOTAL 0.8 mg/dL (0.2-1.0)
[2020-08-09] MEDS ORDERED: SODIUM CHLORIDE 0.9% 1,000ML IVBOLUS ONE (01:00)
--- NOTE | 2020-08-09 01:01 | NUR ---
PT PRESENTS TO THE ER WITH MULTIPLE COMPLAINTS. FIRST, PT WAS EATING A HOT DOG AND GOT A PIECE LODGED IN THE BACK OF HIS THROAT. NOW UNABLE TO DRINK/EAT ANYTHING OR SWALLOW FOOD. ATE THE HOT DOG 1 1/2 HOUR AGO. SECOND, SAYS HIS SUGAR WAS OVER 500 AT HOME AND HAS T2DM, WITH NO HOME INSULIN. THIRD, PT HAS AN AREA AROUND HIS RIGHT NARE THAT IS RED, SWOLLEN, DRAINING FLUID, APPEARING INFECTED.
[2020-08-09 01:12] LABS: ACETONE, SERUM Small (20mg/dL) (Negative)
[2020-08-09 01:54] LABS: MICROSCOPIC NOT IND
[2020-08-09] MEDS ORDERED: ONDANSETRON 2MG/ML, 2ML ONE (02:04)
[2020-08-09] MEDS ORDERED: PROPOFOL 10 MG/ML, 20ML ONE ×2 (02:04→02:12)
[2020-08-09] MEDS ORDERED: OXYMETAZOLINE NASAL SPRAY 0.05%,30ML ONE (02:25)
[2020-08-09] MEDS ORDERED: PROPOFOL 10 MG/ML, 20ML IVPush ONE (02:30)
--- NOTE | 2020-08-09 02:39 | NUR ---
procedure started at 212 and concluded at 226. pt tolerated well. food was successfully removed from esoph by dr brown and dr honeycutt was at bedside to administer sedation. total of 130 mg propofol was used and remaining 70 mg was wasted with bandar williamson as a witness. infection at right nare was also cleaned by travis griggs while dr honeycutt administered sedation. see paper chart for additional intraprocedural notes and vital signs.
[2020-08-09 02:43] VITALS: BP 126/66
--- NOTE | 2020-08-09 02:43 | NUR ---
pt is now back to baseline, on room air, normotensive and A+Ox4
[2020-08-09] MEDS ORDERED: NEOSPORIN OINT. PKT 1 PACKET ONE (03:14)
== END 2020-08-09 03:45 | disposition home or self-care (01) ==
LOC: ED 03:43
DX: T18.108A Unspecified foreign body in esophagus causing other injury, initial encounter (principal); Z76.0 Encounter for issue of repeat prescription; L02.01 Cutaneous abscess of face; E11.65 Type 2 diabetes mellitus with hyperglycemia; I10 Essential (primary) hypertension; E78.5 Hyperlipidemia, unspecified; Z98.61 Coronary angioplasty status; X58.XXXA Exposure to other specified factors, initial encounter; Y93.89 Activity, other specified; Y92.89 Other specified places as the place of occurrence of the external cause; Y99.8 Other external cause status
CPT/HCPCS: 10060; 36415; 43247; 80053; 81003; 82010; 82803; 82962; 85025; 99285; J7030